=== PATIENT | male | born 1950 | race Caucasian/White ===

== ENCOUNTER → 2019-11-01 14:55 | Outpatient (BNVA) | payer MEDICARE, SELFPAY | PROVIDERS: Family Provider Nurse Practitioner; PCP Nurse Practitioner; Visit Provider Nurse Practitioner | DX: I10 Essential (primary) hypertension (principal) | CPT/HCPCS: 80053; 80061 ==

== ENCOUNTER → 2020-04-15 08:33 | Outpatient (BNVA) | payer MEDICARE, SELFPAY | PROVIDERS: Family Provider Nurse Practitioner; PCP Nurse Practitioner; Visit Provider Nurse Practitioner | DX: M10.9 Gout, unspecified (principal); I10 Essential (primary) hypertension | CPT/HCPCS: 80053; 80061; 84550 ==

== ENCOUNTER → 2020-08-13 15:25 | Outpatient (BNVA) | payer MEDICARE, SELFPAY | PROVIDERS: Family Provider Nurse Practitioner; PCP Nurse Practitioner; Visit Provider Nurse Practitioner Family | DX: Z20.828 Contact with and (suspected) exposure to other viral communicable diseases (principal) | CPT/HCPCS: 87635 ==

== ENCOUNTER → 2020-10-08 13:22 | Outpatient (BNVA) | payer MEDICARE, SELFPAY | PROVIDERS: Family Provider Nurse Practitioner; PCP Nurse Practitioner; Visit Provider Urology | DX: Z12.5 Encounter for screening for malignant neoplasm of prostate (principal); N40.1 Benign prostatic hyperplasia with lower urinary tract symptoms; R35.8 Other polyuria; N52.9 Male erectile dysfunction, unspecified | CPT/HCPCS: 81003; G0103 ==

== ENCOUNTER → 2020-11-26 09:16 | Outpatient (BNVA) | payer MEDICARE, SELFPAY | PROVIDERS: Family Provider Nurse Practitioner; PCP Nurse Practitioner; Visit Provider Nurse Practitioner | DX: I10 Essential (primary) hypertension (principal); M10.9 Gout, unspecified; N52.9 Male erectile dysfunction, unspecified; G47.33 Obstructive sleep apnea (adult) (pediatric); Z99.89 Dependence on other enabling machines and devices | CPT/HCPCS: 80053; 80061 ==

== ENCOUNTER → 2021-05-22 11:23 | Outpatient (BNVA) | payer MEDICARE, SELFPAY | PROVIDERS: Family Provider Nurse Practitioner; PCP Nurse Practitioner; Visit Provider Nurse Practitioner | DX: I10 Essential (primary) hypertension (principal); M10.9 Gout, unspecified | CPT/HCPCS: 80053; 80061; 84443 ==

== ENCOUNTER → 2021-10-08 10:36 | Outpatient (BNVA) | payer MEDICARE, SELFPAY | PROVIDERS: Family Provider Nurse Practitioner; PCP Nurse Practitioner; Visit Provider Urology | DX: Z12.5 Encounter for screening for malignant neoplasm of prostate (principal); N40.1 Benign prostatic hyperplasia with lower urinary tract symptoms | CPT/HCPCS: 81003; G0103 ==

== ENCOUNTER → 2021-10-13 08:42 | Outpatient (BNVA) | payer MEDICARE, SELFPAY | PROVIDERS: Family Provider Nurse Practitioner; PCP Nurse Practitioner; Visit Provider Nurse Practitioner | DX: I10 Essential (primary) hypertension (principal) | CPT/HCPCS: 80053; 80061 ==

== ENCOUNTER 2021-11-06 08:23 | Outpatient (CLI) | payer MEDICARE, SELFPAY ==
--- NOTE | 2021-11-06 10:00 | CT_ITS ---
WS: [id number] CT HEAD NONCONTRAST HISTORY: R41.3 - Other amnesia TECHNIQUE: Contiguous axial imaging performed through the brain in 2.5 mm imaging. Bone and soft tiss ue windows. Sagittal and coronal reformats reviewed. All CT scans at [facility] use at least one of these dose optimization techniques: automated exposure control; mA and/or kV adjustment per pa tient size (includes targeted exams where dose is matched to clinical indication); or iterative recon struction. DLP: 897.36 mGy.cm COMPARISON: None available. No acute intracranial hemorrhage, midline shift or mass effect. Mild atrophy. There is a small lacunar infarct anterior limb of the LEFT internal capsule and a promi nent perivascular space or lacunar infarct in the posterior LEFT frontal lobe. Mild cerebellar atroph y. Ventricles: Normal size with no hydrocephalus. No inferior displacement of cerebellar tonsils. Paranasal sinuses: As visualized are clear. Mastoid air cells: Well pneumatized. Calvarium and scalp: Skull is intact with no soft tissue edema or swelling. CT/CT head wo con* [id number] IMPRESSION: 1. No acute intracranial hemorrhage or edema. 2. Atrophy and remote LEFT internal capsule lacunar infarct. 3. Mild chronic microvascular ischemic disease.
== END 2021-11-06 08:24 | disposition home or self-care (01) ==
PROVIDERS: PCP Nurse Practitioner; Visit Provider Nurse Practitioner
DX: R41.3 Other amnesia (principal); G31.9 Degenerative disease of nervous system, unspecified; I67.82 Cerebral ischemia
CPT/HCPCS: 70450

== ENCOUNTER → 2022-02-02 09:38 | Outpatient (BNVA) | payer MEDICARE, SELFPAY | PROVIDERS: PCP Nurse Practitioner; Visit Provider Nurse Practitioner | DX: I10 Essential (primary) hypertension (principal) | CPT/HCPCS: 80053; 80061; 81000; 84443; 85025 ==

== ENCOUNTER 2022-03-04 10:00 | Outpatient (CLI) | payer MEDICARE, SELFPAY | END 2022-03-04 10:01 | disposition home or self-care (01) | LOC: SLEEP 03-05 09:22 | PROVIDERS: PCP Nurse Practitioner; Visit Provider Nurse Practitioner | DX: G47.33 Obstructive sleep apnea (adult) (pediatric) (principal) | CPT/HCPCS: 94762 ==

== ENCOUNTER → 2022-04-08 12:57 | Outpatient (BNVA) | payer MEDICARE, SELFPAY | PROVIDERS: PCP Nurse Practitioner; Visit Provider Internal Medicine Cardiovascular Disease | DX: R00.1 Bradycardia, unspecified (principal); I10 Essential (primary) hypertension; Z87.891 Personal history of nicotine dependence; I45.4 Nonspecific intraventricular block; R00.0 Tachycardia, unspecified | CPT/HCPCS: 93246; 99203; 99204 ==

== ENCOUNTER → 2022-06-10 14:50 | Outpatient (BNVA) | payer MEDICARE, SELFPAY | PROVIDERS: PCP Nurse Practitioner; Visit Provider Internal Medicine Cardiovascular Disease | DX: R00.1 Bradycardia, unspecified (principal); I10 Essential (primary) hypertension; Z87.891 Personal history of nicotine dependence | CPT/HCPCS: 99213; 99214 ==

== ENCOUNTER → 2022-09-09 11:19 | Outpatient (BNVA) | payer MEDICARE, SELFPAY | PROVIDERS: PCP Nurse Practitioner; Visit Provider Nurse Practitioner | DX: I10 Essential (primary) hypertension (principal); Z12.11 Encounter for screening for malignant neoplasm of colon; E78.2 Mixed hyperlipidemia; F03.90 Unspecified dementia, unspecified severity, without behavioral disturbance, psychotic disturbance, mood disturbance, and anxiety; F01.50 Vascular dementia, unspecified severity, without behavioral disturbance, psychotic disturbance, mood disturbance, and anxiety; M10.9 Gout, unspecified | CPT/HCPCS: 80053; 80061 ==

== ENCOUNTER → 2022-10-14 11:03 | Outpatient (BNVA) | payer MEDICARE, SELFPAY | PROVIDERS: PCP Nurse Practitioner; Referring Provider Urology; Visit Provider Urology | DX: N40.1 Benign prostatic hyperplasia with lower urinary tract symptoms (principal) | CPT/HCPCS: 84153 ==

== ENCOUNTER → 2022-10-20 13:01 | Outpatient (BNVA) | payer MEDICARE, SELFPAY | PROVIDERS: PCP Nurse Practitioner; Visit Provider Urology | DX: N40.1 Benign prostatic hyperplasia with lower urinary tract symptoms (principal); N39.41 Urge incontinence; N52.9 Male erectile dysfunction, unspecified | CPT/HCPCS: 81003; 99213 ==

== ENCOUNTER → 2022-12-02 12:58 | Outpatient (BNVA) | payer MEDICARE, SELFPAY | PROVIDERS: PCP Nurse Practitioner; Visit Provider Urology | DX: N40.1 Benign prostatic hyperplasia with lower urinary tract symptoms (principal); N39.41 Urge incontinence; N52.9 Male erectile dysfunction, unspecified; R35.89 Other polyuria | CPT/HCPCS: 81003; 99213 ==

== ENCOUNTER → 2023-01-21 11:18 | Outpatient (BNVA) | payer MEDICARE, SELFPAY | PROVIDERS: PCP Nurse Practitioner; Visit Provider Nurse Practitioner | DX: M10.9 Gout, unspecified (principal); I10 Essential (primary) hypertension; E78.2 Mixed hyperlipidemia; F01.50 Vascular dementia, unspecified severity, without behavioral disturbance, psychotic disturbance, mood disturbance, and anxiety; N52.9 Male erectile dysfunction, unspecified; M25.361 Other instability, right knee; G47.33 Obstructive sleep apnea (adult) (pediatric); Z99.89 Dependence on other enabling machines and devices | CPT/HCPCS: 80053; 80061 ==

== ENCOUNTER 2023-01-25 10:14 | Outpatient (CLI) | payer MEDICARE, SELFPAY ==
--- NOTE | 2023-01-25 10:22 | XR_ITS ---
WS: [id number] XR knee RT 3V* [id number] REASON FOR EXAM: M25.361 - Other instability, right knee FINDINGS: There does not appear to be significant narrowing of the medial, lateral, or patellofemoral joint spa ce. Small osteophytes from the articular patella. Corticated bone bodies posterior to the femur and in the midline. Presumed loose bodies. No osteochon dral defects identified. XR/XR knee RT 3V* [id number] IMPRESSION: Probable loose bodies.
== END 2023-01-25 10:15 | disposition home or self-care (01) ==
LOC: RAD 10:17
PROVIDERS: PCP Nurse Practitioner; Visit Provider Nurse Practitioner
DX: M25.361 Other instability, right knee (principal)
CPT/HCPCS: 73562

== ENCOUNTER 2023-02-22 06:00 | Outpatient (RCR) | payer MEDICARE, SELFPAY | END 2023-03-24 23:59 | disposition home or self-care (01) | LOC: APT 06:00 | PROVIDERS: PCP Nurse Practitioner; Visit Provider Nurse Practitioner | DX: M25.561 Pain in right knee (principal) | CPT/HCPCS: 97110; 97161 ==

== ENCOUNTER → 2023-03-04 08:55 | Outpatient (BNVA) | payer MEDICARE, SELFPAY | PROVIDERS: PCP Nurse Practitioner; Visit Provider Urology | DX: N40.1 Benign prostatic hyperplasia with lower urinary tract symptoms (principal); N39.41 Urge incontinence; N52.9 Male erectile dysfunction, unspecified | CPT/HCPCS: 81003; 99213 ==

== ENCOUNTER → 2023-03-30 09:06 | Outpatient (BNVA) | payer MEDICARE, SELFPAY | PROVIDERS: PCP Nurse Practitioner; Visit Provider Nurse Practitioner Family | DX: L57.0 Actinic keratosis (principal); L82.1 Other seborrheic keratosis; D36.14 Benign neoplasm of peripheral nerves and autonomic nervous system of thorax; L57.8 Other skin changes due to chronic exposure to nonionizing radiation; L81.4 Other melanin hyperpigmentation; Z71.89 Other specified counseling | CPT/HCPCS: 17000; 17003; 99213 ==

== ENCOUNTER → 2023-04-01 08:31 | Outpatient (BNVA) | payer MEDICARE, SELFPAY | PROVIDERS: PCP Nurse Practitioner; Visit Provider Psychiatry & Neurology Neurology | DX: F01.50 Vascular dementia, unspecified severity, without behavioral disturbance, psychotic disturbance, mood disturbance, and anxiety (principal); G47.8 Other sleep disorders; Z86.73 Personal history of transient ischemic attack (TIA), and cerebral infarction without residual deficits; H91.93 Unspecified hearing loss, bilateral; G47.33 Obstructive sleep apnea (adult) (pediatric); Z97.4 Presence of external hearing-aid; I10 Essential (primary) hypertension; M10.9 Gout, unspecified; E78.5 Hyperlipidemia, unspecified; Z87.891 Personal history of nicotine dependence | CPT/HCPCS: 99203 ==

== ENCOUNTER 2023-04-14 07:36 | Outpatient (CLI) | payer MEDICARE, SELFPAY ==
--- NOTE | 2023-04-14 08:00 | USCV_ITS ---
Ree Quentin Age: 72 Gender: M : 1950 Exam Date: 04/14/2023 07:48 Ordering Phys: Nahun Lange MD Technologist: CT Exam Location: [facility] – [place]_ Indication: Risk Factors: Previous Vascular Surgery: Right Brachial BP: / Left Brachial BP: / Right Left Velocity (cm/s) Spectral Plaque Velocity (cm/s) Spectral Plaque Syst/Diast Broadening Syst/Diast Broadening 100.30/11.00 Prox CCA 161.70/ 19.70 67.50/ 10.30 Mid CCA 88.20 / 14.30 60.60/ 8.50 Distal CCA 62.90 / 10.90 54.10/ 13.70 Prox ICA 38.70 / 7.90 54.10/ 11.70 Mid ICA 36.10 / 9.10 39.40/ 9.20 Distal ICA 38.60 / 8.30 67.70 ECA 78.60 0.54 ICA/CCA 0.24 Antegrade Vertebral Antegrade 37.60/ 11.10 cm/s 30.30/ 7.20 cm/s Bi Subclavian Bi 92.00 101.2 0 CONCLUSIONS Intimal thickening in the common carotid arteries and internal carotid arteries bilaterally. Right ICA stenosis <50%. Mild atheromatous plaque right carotid bulb/ICA. Left ICA stenosis <50%. Mild atheromatous plaque left carotid bulb/ICA. Normal antegrade Doppler flow noted in the right vertebral artery. Normal antegrade Doppler flow noted in the left vertebral artery. Calvin Ny MD (Electronically Signed) Final Date: 14 April 2023 11:10 S
== END 2023-04-14 07:37 | disposition home or self-care (01) ==
PROVIDERS: PCP Nurse Practitioner; Visit Provider Psychiatry & Neurology Neurology
DX: I65.23 Occlusion and stenosis of bilateral carotid arteries (principal); F03.90 Unspecified dementia, unspecified severity, without behavioral disturbance, psychotic disturbance, mood disturbance, and anxiety
CPT/HCPCS: 93880

== ENCOUNTER 2023-04-21 07:33 | Outpatient (CLI) | payer MEDICARE, SELFPAY ==
--- NOTE | 2023-04-21 08:00 | MR_ITS ---
WS: [id number] MRI HEAD WITH CONTRAST TECHNIQUE: Sagittal T1, T2 axial, T2 axial FLAIR, axial susceptibility weighted imaging, axial diffus ion weighted images, and coronal T2 images were obtained. Pre and post-T1 axial and post T1 coronal i mages. ADC and FSPGR images. CLINICAL INFORMATION: F03.90 - Unspecified dementia, unspecified severity, with... COMPARISON: CT head November 06, 2021 FINDINGS: No evidence of restricted diffusion to suggest acute ischemia. Ventricular system and basal cisterns are patent. Moderate small vessel changes with mild parenchymal volume loss. A few chronic lacunar in farcts and/or prominent perivascular spaces in the basal ganglia bilaterally. Normal posterior fossa. Normal vascular flow voids at the skull base. Mild mucosal thickening in the paranasal sinuses. Poly p LEFT maxillary sinus measuring 1.9 CM. Mastoid air cells well aerated. Normal posterior nasopharynx . Normal parapharyngeal fat. A few chronic foci of hemosiderin in the RIGHT lateral thalamus and posterior limb RIGHT internal cap yue. Normal optic chiasm and pituitary infundibulum. Moderate symmetric atrophy temporal lobes and h ippocampal formations. Normal optic chiasm and pituitary infundibulum. No abnormal intracranial enhancement. Normal dural venous sinuses. MR/MR head wo/w con [id number] IMPRESSION: 1. No evidence of restricted diffusion to suggest acute ischemia. 2. Moderate small vessel changes with mild to moderate parenchymal volume loss . 3. Prominent perivascular spaces in the basal ganglia. A few superimposed tiny chronic lacunar infarcts bilaterally. 4. Small foci of chronic hemosiderin in the posterior limb RIGHT internal caps ule. 5. No abnormal gadolinium enhancement. 6. Moderate symmetric atrophy temporal lobes and hippocampal formations. 7. Polyp LEFT maxillary sinus measuring 1.9 cm.
[2023-04-21] MEDS: gadobenate dimeglumine 20 mL vial IV (09:09)
== END 2023-04-21 07:34 | disposition home or self-care (01) ==
PROVIDERS: PCP Nurse Practitioner; Visit Provider Psychiatry & Neurology Neurology
DX: F03.90 Unspecified dementia, unspecified severity, without behavioral disturbance, psychotic disturbance, mood disturbance, and anxiety (principal); I67.89 Other cerebrovascular disease; G31.89 Other specified degenerative diseases of nervous system; J33.8 Other polyp of sinus
CPT/HCPCS: 70553; A9577

== ENCOUNTER → 2023-04-26 11:19 | Outpatient (BNVA) | payer MEDICARE, SELFPAY | PROVIDERS: PCP Nurse Practitioner; Visit Provider Internal Medicine Cardiovascular Disease | DX: R00.1 Bradycardia, unspecified (principal); I10 Essential (primary) hypertension; Z87.891 Personal history of nicotine dependence | CPT/HCPCS: 99214 ==

== ENCOUNTER 2023-05-05 20:00 | Outpatient (CLI) | payer MEDICARE, SELFPAY | END 2023-05-05 20:01 | disposition home or self-care (01) | LOC: SLEEP 05-06 06:26 | PROVIDERS: PCP Nurse Practitioner; Visit Provider Psychiatry & Neurology Neurology | DX: G47.52 REM sleep behavior disorder (principal); G47.33 Obstructive sleep apnea (adult) (pediatric); R06.83 Snoring; R53.83 Other fatigue | CPT/HCPCS: 95810 ==

== ENCOUNTER → 2023-07-13 13:35 | Outpatient (BNVA) | payer MEDICARE, SELFPAY | PROVIDERS: PCP Nurse Practitioner; Visit Provider Psychiatry & Neurology Neurology | DX: G47.8 Other sleep disorders (principal); R41.3 Other amnesia | CPT/HCPCS: 99212 ==

== ENCOUNTER → 2023-07-15 12:00 | Outpatient (BNVA) | payer MEDICARE, SELFPAY | PROVIDERS: PCP Nurse Practitioner; Visit Provider Nurse Practitioner | DX: M10.9 Gout, unspecified (principal); I10 Essential (primary) hypertension; F03.90 Unspecified dementia, unspecified severity, without behavioral disturbance, psychotic disturbance, mood disturbance, and anxiety; F01.50 Vascular dementia, unspecified severity, without behavioral disturbance, psychotic disturbance, mood disturbance, and anxiety; E78.2 Mixed hyperlipidemia; Z86.73 Personal history of transient ischemic attack (TIA), and cerebral infarction without residual deficits | CPT/HCPCS: 80053; 80061; 82607; 84443 ==

== ENCOUNTER → 2023-08-25 11:46 | Outpatient (BNVA) | payer MEDICARE, SELFPAY | PROVIDERS: PCP Nurse Practitioner; Visit Provider Nurse Practitioner | DX: R07.81 Pleurodynia (principal) | CPT/HCPCS: 71101 ==

== ENCOUNTER 2023-09-08 07:26 | Outpatient (CLI) | payer MEDICARE, SELFPAY ==
--- NOTE | 2023-09-08 07:45 | CT_ITS ---
WS: [email or web address] LDCT LUNG CANCER SCREENING TECHNIQUE: Noncontrast CT of the chest with coronal and sagittal reformatted images. CLINICAL INFORMATION: Z87.891 - Personal history of nicotine dependence COMPARISON: None. DLP: 104.91 mGy.cm DIvol: Mean CTDIvol: 2.40 (mGy) All CT scans at [facility] use at least one of these dose optimization techniques: automat ed exposure control; mA and/or kV adjustment per patient size (includes targeted exams where dose is matched to clinical indication); or iterative reconstruction. FINDINGS: A few tiny calcified granulomas. Tiny subpleural nodule RIGHT upper lobe. Tiny nodule about the LEFT hilum. Tiny nodule along the LEFT fissure. Normal caliber thoracic aorta. Aortic calcification. No mediastinal or hilar lymphadenopathy. Small e sophageal hiatal hernia. Splenic artery calcifications. Splenic granulomas. Small bilateral adrenal a denomas. IMPRESSION: CT/CT lung screening [id number] LUNG-RADS: 2-Benign Appearance or Behavior FOLLOW UP: 12 Month: Continue annual screening with LDCT
== END 2023-09-08 07:27 | disposition home or self-care (01) ==
LOC: RAD 07:26
PROVIDERS: PCP Nurse Practitioner; Visit Provider Nurse Practitioner
DX: Z12.2 Encounter for screening for malignant neoplasm of respiratory organs (principal); Z87.891 Personal history of nicotine dependence
CPT/HCPCS: 71271

== ENCOUNTER → 2023-09-30 11:17 | Outpatient (BNVA) | payer MEDICARE, SELFPAY | PROVIDERS: PCP Nurse Practitioner; Referring Provider Nurse Practitioner; Visit Provider Internal Medicine Cardiovascular Disease | DX: R00.1 Bradycardia, unspecified (principal); R41.3 Other amnesia; I10 Essential (primary) hypertension; E66.9 Obesity, unspecified; Z68.34 Body mass index [BMI] 34.0-34.9, adult; E78.2 Mixed hyperlipidemia; Z87.891 Personal history of nicotine dependence | CPT/HCPCS: 99214 ==

== ENCOUNTER → 2023-11-17 12:49 | Outpatient (BNVA) | payer MEDICARE, SELFPAY | PROVIDERS: PCP Nurse Practitioner; Visit Provider Psychiatry & Neurology Neurology | DX: R41.3 Other amnesia (principal); Z86.73 Personal history of transient ischemic attack (TIA), and cerebral infarction without residual deficits; R00.1 Bradycardia, unspecified; G47.8 Other sleep disorders | CPT/HCPCS: 99212 ==

== ENCOUNTER → 2023-12-30 09:15 | Outpatient (BNVA) | payer MEDICARE, SELFPAY | PROVIDERS: PCP Nurse Practitioner; Visit Provider Nurse Practitioner | DX: I10 Essential (primary) hypertension; E78.2 Mixed hyperlipidemia | CPT/HCPCS: 80053; 80061 ==

== ENCOUNTER → 2024-02-23 12:40 | Outpatient (BNVA) | payer MEDICARE, SELFPAY | PROVIDERS: PCP Nurse Practitioner; Visit Provider Psychiatry & Neurology Neurology | DX: R41.3 Other amnesia (principal); Z86.73 Personal history of transient ischemic attack (TIA), and cerebral infarction without residual deficits; R00.1 Bradycardia, unspecified; G47.8 Other sleep disorders; Z87.891 Personal history of nicotine dependence | CPT/HCPCS: 99212 ==

== ENCOUNTER → 2024-03-30 12:20 | Outpatient (BNVA) | payer MEDICARE, SELFPAY | PROVIDERS: PCP Nurse Practitioner; Visit Provider Internal Medicine Cardiovascular Disease | DX: I10 Essential (primary) hypertension (principal); E78.2 Mixed hyperlipidemia; R00.1 Bradycardia, unspecified; E66.9 Obesity, unspecified; G47.33 Obstructive sleep apnea (adult) (pediatric); Z99.89 Dependence on other enabling machines and devices; Z87.891 Personal history of nicotine dependence; Z68.34 Body mass index [BMI] 34.0-34.9, adult | CPT/HCPCS: 99213 ==

== ENCOUNTER → 2024-06-15 08:52 | Outpatient (BNVA) | payer MEDICARE, SELFPAY | PROVIDERS: PCP Nurse Practitioner; Visit Provider Nurse Practitioner | DX: Z12.5 Encounter for screening for malignant neoplasm of prostate (principal); I10 Essential (primary) hypertension; E78.2 Mixed hyperlipidemia | CPT/HCPCS: 80053; 80061; 84443; G0103 ==

== ENCOUNTER → 2024-07-12 14:30 | Outpatient (BNVA) | payer MEDICARE, SELFPAY | PROVIDERS: PCP Nurse Practitioner; Visit Provider Psychiatry & Neurology Neurology | DX: R41.3 Other amnesia (principal); Z86.73 Personal history of transient ischemic attack (TIA), and cerebral infarction without residual deficits; R00.1 Bradycardia, unspecified; G47.8 Other sleep disorders | CPT/HCPCS: 99212; 99213 ==

== ENCOUNTER → 2024-10-03 15:43 | Outpatient (BNVA) | payer MEDICARE, SELFPAY | PROVIDERS: PCP Nurse Practitioner; Visit Provider Internal Medicine Cardiovascular Disease | DX: R00.1 Bradycardia, unspecified (principal); I10 Essential (primary) hypertension; E78.5 Hyperlipidemia, unspecified; R47.01 Aphasia; Z87.891 Personal history of nicotine dependence | CPT/HCPCS: 99213 ==

== ENCOUNTER → 2024-11-07 10:51 | Outpatient (BNVA) | payer MEDICARE, SELFPAY | PROVIDERS: PCP Nurse Practitioner; Visit Provider Nurse Practitioner | DX: I10 Essential (primary) hypertension; E55.9 Vitamin D deficiency, unspecified; M10.9 Gout, unspecified; M25.50 Pain in unspecified joint; Z12.5 Encounter for screening for malignant neoplasm of prostate | CPT/HCPCS: 80053; 80061; 82306; 82607; 83735; 84443; 84550; 85025; 85651; 86038; 86140; 86431; G0103 ==

== ENCOUNTER → 2025-01-31 08:58 | Outpatient (BNVA) | payer MEDICARE, SELFPAY | PROVIDERS: PCP Nurse Practitioner; Referring Provider Nurse Practitioner; Visit Provider Internal Medicine Rheumatology | DX: M05.9 Rheumatoid arthritis with rheumatoid factor, unspecified (principal); Z79.899 Other long term (current) drug therapy; Z71.85 Encounter for immunization safety counseling; M06.00 Rheumatoid arthritis without rheumatoid factor, unspecified site | CPT/HCPCS: 36415; 80076; 82565; 85025; 85651; 86140; 86480; 86704; 86803; 87340; 99204 ==

== ENCOUNTER → 2025-02-07 14:30 | Outpatient (BNVA) | payer MEDICARE, SELFPAY | PROVIDERS: PCP Nurse Practitioner; Visit Provider Psychiatry & Neurology Neurology | DX: R41.3 Other amnesia (principal); Z86.73 Personal history of transient ischemic attack (TIA), and cerebral infarction without residual deficits; R00.1 Bradycardia, unspecified; G47.8 Other sleep disorders | CPT/HCPCS: 0346U; 36415; 82542; 83520; 99212 ==

== ENCOUNTER 2025-02-13 09:07 | Outpatient (CLI) | payer MEDICARE, SELFPAY ==
--- NOTE | 2025-02-13 09:30 | MR_ITS ---
WS: [id number] MRI BRAIN WITHOUT CONTRAST HISTORY: Z86.73 - Personal history of transient ischemic attack, short-term memory loss. COMPARISON: 04/21/2023 TECHNIQUE: Diffusion imaging, multiplanar T1, T2 and FLAIR imaging obtained. No acute infarct. Diffusion imaging is normal. Small foci of chronic hemosiderin near the posterior limb of the RIGHT internal capsule. Moderate small vessel ischemic type changes. Similar to the prior study from 04/21/2023. Moderate atrophy and volume loss. Moderate cerebellar atrophy. No mass at the cerebellopontine angle. Mild bilateral hippocampal atrophy, RIGHT greater than LEFT. Ventricles and extra-axial spaces are normal. No inferior displacement of cerebellar tonsils. The sella turcica and pituitary gland are unremarkable. Paranasal sinuses: Mucous retention cyst versus polyp in the LEFT maxillary sinus has slightly decreased in size. No air-fluid levels. Mastoid air cells: Normal. Calvarium and scalp: Intact. MR/MR head wo con* [id number] IMPRESSION: 1. No acute infarct or hemorrhage. 2. Moderate small vessel ischemic changes similar to the study from 04/21/2023. 3. Chronic hemosiderin in the posterior limb of the RIGHT internal capsule, st able. 4. Decrease in size of the LEFT maxillary sinus cyst versus polyp. 5. Bilateral mild hippocampal atrophy, RIGHT greater than LEFT. 6. Moderate bilateral cerebral and cerebellar atrophy.
== END 2025-02-13 09:08 | disposition home or self-care (01) ==
LOC: RAD 09:10
PROVIDERS: PCP Nurse Practitioner; Visit Provider Psychiatry & Neurology Neurology
DX: Z86.73 Personal history of transient ischemic attack (TIA), and cerebral infarction without residual deficits (principal); R41.3 Other amnesia; R00.1 Bradycardia, unspecified; G47.8 Other sleep disorders; R93.0 Abnormal findings on diagnostic imaging of skull and head, not elsewhere classified; J34.89 Other specified disorders of nose and nasal sinuses; G31.89 Other specified degenerative diseases of nervous system
CPT/HCPCS: 70551

== ENCOUNTER 2025-02-27 12:17 | Outpatient (CLI) | payer MEDICARE, SELFPAY ==
[2025-02-27 13:11] LABS: Basophils % 0.3 %; Eosinophils # 0.1 10^3/uL (0.0-0.8); Eosinophils % 1.5 %; Hematocrit 40.7 % (37-53); Lymphocytes # 1.3 10^3/uL (0.8-4.8); Lymphocytes % 21.3 %; Mean Corpuscular HGB Conc 32.4 g/dL (30-55); Mean Corpuscular Hemoglobin 29.9 pg (27-33); Mean Corpuscular Volume 92.3 fl (82-101); Mean Platelet Volume 9.4 fL (7.4-10.4); Monocytes # 0.4 10^3/uL (0.2-0.9); Monocytes % 6.8 %; Neutrophils # 4.11 10^3/uL (1.8-7.7); Neutrophils % 69.9 %; Nucleated Red Blood Cells % 0 %; Platelet Count 210 10^3/cmm (157-399); Red Blood Count 4.41 10^6/uL (3.85-5.65); Red Cell Distribution Width 15.5 % (12.1-15.1); White Blood Count 5.88 10^3/uL (3.29-11.43)
[2025-02-27 13:16] LABS: Erythrocyte Sedimentation Rate 7 mm/hr (0-10)
[2025-02-27 13:32] LABS: Alanine Aminotransferase 21 U/L (0-41); Albumin Level 3.6 g/dL (3.5-5.2); Alkaline Phosphatase 53 U/L (40-130); Aspartate Amino Transferase 15 U/L (0-40); Globulin 2.7 g/dL (1.3-4.6); Total Bilirubin 0.2 mg/dL (0.15-1.2); Total Protein 6.3 g/dL (6.6-8.7)
== END 2025-02-27 12:18 | disposition home or self-care (01) ==
PROVIDERS: PCP Nurse Practitioner; Visit Provider Internal Medicine Rheumatology
DX: M06.00 Rheumatoid arthritis without rheumatoid factor, unspecified site (principal)
CPT/HCPCS: 36415; 80076; 82565; 85025; 85651; 86140

== ENCOUNTER 2025-03-29 11:26 | Outpatient (CLI) | payer MEDICARE, SELFPAY ==
--- NOTE | 2025-03-29 11:45 | USCV_ITS ---
Ree Quentin Age: 74 Gender: M : 1950 Exam Date: 03/29/2025 11:57 Ordering Phys: Nahun Lange MD Technologist: USR Exam Location: [facility] [place] Indication: stenosis Risk Factors: Previous Vascular Surgery: Right Brachial BP: / Left Brachial BP: / Right Left Velocity (cm/s) Spectral Plaque Velocity (cm/s) Spectral Plaque Syst/Diast Broadening Syst/Diast Broadening 87.60/ 9.80 Prox CCA 103.30/ 12.40 91.10/ 12.60 Mid CCA 81.20 / 17.20 76.50/ 14.40 Distal CCA 56.90 / 11.80 66.00/ 15.80 Prox ICA 58.70 / 15.20 39.50/ 11.60 Mid ICA 38.80 / 8.30 35.10/ 10.90 Distal ICA 28.60 / 6.20 87.50 ECA 96.20 0.90 ICA/CCA 1.00 Antegrade Vertebral Antegrade 23.50/ 5.60 cm/s 34.60/ 6.80 cm/s Bi Subclavian Bi 115.7 67.60 0 CONCLUSIONS Right ICA stenosis <50%. Moderate atheromatous plaque right carotid bulb/ICA. Left ICA stenosis <50%. Mild atheromatous plaque left carotid bulb/ICA. Intimal thickening in the common carotid arteries and internal carotid arteries bilaterally. Normal antegrade Doppler flow noted in the right vertebral artery. Normal antegrade Doppler flow noted in the left vertebral artery. Calvin Ny MD (Electronically Signed) Final Date: 29 March 2025 13:43 S
== END 2025-03-29 11:27 | disposition home or self-care (01) ==
PROVIDERS: PCP Nurse Practitioner; Visit Provider Psychiatry & Neurology Neurology
DX: Z86.73 Personal history of transient ischemic attack (TIA), and cerebral infarction without residual deficits (principal); R41.3 Other amnesia; R00.1 Bradycardia, unspecified; G47.8 Other sleep disorders; I65.23 Occlusion and stenosis of bilateral carotid arteries
CPT/HCPCS: 93880

== ENCOUNTER → 2025-05-09 09:52 | Outpatient (BNVA) | payer MEDICARE, SELFPAY | PROVIDERS: PCP Nurse Practitioner; Visit Provider Nurse Practitioner | DX: F01.50 Vascular dementia, unspecified severity, without behavioral disturbance, psychotic disturbance, mood disturbance, and anxiety (principal); I10 Essential (primary) hypertension; M10.9 Gout, unspecified; E55.9 Vitamin D deficiency, unspecified | CPT/HCPCS: 80053; 80061; 82306; 82607; 84425; 84550 ==

== ENCOUNTER → 2025-05-30 10:13 | Outpatient (BNVA) | payer MEDICARE, SELFPAY | PROVIDERS: PCP Nurse Practitioner; Visit Provider Internal Medicine Rheumatology | DX: M05.9 Rheumatoid arthritis with rheumatoid factor, unspecified (principal); Z79.899 Other long term (current) drug therapy; Z71.85 Encounter for immunization safety counseling | CPT/HCPCS: 99214 ==

== ENCOUNTER → 2025-07-02 10:42 | Outpatient (BNVA) | payer MEDICARE, SELFPAY | PROVIDERS: PCP Nurse Practitioner; Visit Provider Internal Medicine Rheumatology | DX: Z79.899 Other long term (current) drug therapy (principal) | CPT/HCPCS: 80076; 82565; 85025; 85651; 86140 ==

== ENCOUNTER → 2025-09-25 09:33 | Outpatient (BNVA) | payer MEDICARE, SELFPAY | PROVIDERS: PCP Nurse Practitioner; Visit Provider Nurse Practitioner | DX: I10 Essential (primary) hypertension (principal); Z12.5 Encounter for screening for malignant neoplasm of prostate | CPT/HCPCS: 80053; 80061; G0103 ==

== ENCOUNTER → 2025-10-01 15:28 | Outpatient (BNVA) | payer MEDICARE, SELFPAY | PROVIDERS: PCP Nurse Practitioner; Visit Provider Internal Medicine Cardiovascular Disease | DX: R07.9 Chest pain, unspecified (principal); R00.1 Bradycardia, unspecified; I49.8 Other specified cardiac arrhythmias; I45.4 Nonspecific intraventricular block; R94.31 Abnormal electrocardiogram [ECG] [EKG] | CPT/HCPCS: 93005 ==

== ENCOUNTER → 2025-10-10 10:07 | Outpatient (BNVA) | payer MEDICARE, SELFPAY | PROVIDERS: PCP Nurse Practitioner; Visit Provider Internal Medicine Rheumatology | DX: M05.9 Rheumatoid arthritis with rheumatoid factor, unspecified (principal); Z79.899 Other long term (current) drug therapy; Z71.85 Encounter for immunization safety counseling | CPT/HCPCS: 36415; 80076; 82565; 85025; 85651; 86140; 99214 ==